=== PATIENT | female | born 1955 | race Hispanic/Latino ===

== ENCOUNTER 2020-11-03 12:02 | Inpatient (IN) | payer MEDICARE, OTHER ==
[~2020-11-03] VITALS: Ht 157.5 cm; Wt 79.4 kg
[2020-11-03 05:00] VITALS: BP 105/53
[2020-11-03 14:19] LABS: BASOPHILS % 0.2 % (0.0-1.0); EOSINOPHILS % 0.1 % (0.0-6.0); HEMATOCRIT 41.2 % (34.2-44.1); HEMOGLOBIN 13.2 g/dL (12.0-16.0); LYMPHOCYTES # (AUTO) 0.8 (1.0-3.2); LYMPHOCYTES % 7.3 % (18.0-39.1); MEAN CORPUSCULAR HEMOGLOBIN 29.3 pg (28-32); MEAN CORPUSCULAR VOLUME 91.4 fL (81-99); MONOCYTES # (AUTO) 0.4 (0.2-0.8); MONOCYTES % 3.3 % (4.4-11.3); NEUTROPHILS # (AUTO) 9.3 (2.1-6.9); NEUTROPHILS % 88.4 % (38.7-80.0); PLATELET COUNT 250 x10e3/uL (140-360); RED BLOOD COUNT 4.51 x10e6/uL (3.6-5.1); RED CELL DISTRIBUTION WIDTH 13.8 % (11.7-14.4)
[2020-11-03 14:23] LABS: INR 0.95; PROTHROMBIN TIME 13.2 seconds (11.9-14.5)
[2020-11-03] MEDS ORDERED: SODIUM CHLORIDE 0.9% 1000ML 1,000 ML IV STA (14:23)
[2020-11-03] MEDS ORDERED: ONDANSETRON HCL INJ 2MG/ML 2ML 2 MG/ML VIAL IV STA (14:23)
[2020-11-03 14:24] LABS: PARTIAL THROMBOPLASTIN TIME 29.7 seconds (23.8-35.5)
[2020-11-03] MEDS ORDERED: DEXAMETHASONE SOD PHOS INJ 4 MG/ML VIAL IV ONE (14:30)
[2020-11-03] MEDS ORDERED: CEFTRIAXONE SOD 1 GM/NS 50 ML 50 ML IV ONE (14:30)
[2020-11-03 14:33] LABS: ALBUMIN/GLOBULIN RATIO 0.6 (0.8-2.0); ANION GAP 15.5 mmol/L (8-16); CALCIUM 8.7 mg/dL (8.4-10.2); CREATININE, SERUM 1.21 mg/dL (0.57-1.11); MAGNESIUM 2.2 MG/DL (1.3-2.1); POTASSIUM 4.5 mmol/L (3.5-5.1)
[2020-11-03 14:40] LABS: CREATINE KINASE MB 0.6 ng/mL (0-5.0)
[2020-11-03] MEDS ORDERED: PANTOPRAZOLE 40 MG 10ML VIAL IV ONE (14:45)
[2020-11-03] MEDS ORDERED: AZITHROMYCIN 500MG/NS 250 ML 250 ML IV ONE (15:00)
[2020-11-03] MEDS ORDERED: ONDANSETRON HCL INJ 2MG/ML 2ML 2 MG/ML VIAL IV PRN (18:30)
[2020-11-03] MEDS: SODIUM CHLORIDE 0.9% 1000ML 1,000 ML IV SCH (19:14)
[2020-11-03] MEDS: ACETAMINOPHEN 325 MG TAB PO PRN ×2 (19:32→19:39)
[2020-11-03] MEDS ORDERED: ZOLPIDEM TARTRATE 5 MG TAB PO PRN (21:00)
[2020-11-03 23:15] VITALS: BP 105/53
[2020-11-04] VITALS (7 sets, daily range): BP systolic 105–135; BP diastolic 53–64
[2020-11-04] MEDS: ACETAMINOPHEN 325 MG TAB PO PRN (02:02)
[2020-11-04 02:08] LABS: CREATINE KINASE MB 0.8 ng/mL (0-5.0)
[2020-11-04] MEDS: SODIUM CHLORIDE 0.9% 1000ML 1,000 ML IV SCH (03:45)
[2020-11-04] MEDS ORDERED: LEVOTHYROXINE137 MC1 PO (04:29)
[2020-11-04] MEDS ORDERED: LEVOTHYROXINE112 MCG PO (04:31)
[2020-11-04 06:33] LABS: BASOPHILS % 0.2 % (0.0-1.0); HEMATOCRIT 37.7 % (34.2-44.1); LYMPHOCYTES % 12.4 % (18.0-39.1); MEAN CORPUSCULAR HEMOGLOBIN 29.7 pg (28-32); MEAN CORPUSCULAR HGB CONC 31.8 g/dL (31-35); MEAN CORPUSCULAR VOLUME 93.3 fL (81-99); MONOCYTES # (AUTO) 0.4 (0.2-0.8); MONOCYTES % 4.5 % (4.4-11.3); NEUTROPHILS # (AUTO) 6.9 (2.1-6.9); NEUTROPHILS % 81.6 % (38.7-80.0); PLATELET COUNT 219 x10e3/uL (140-360); RED BLOOD COUNT 4.04 x10e6/uL (3.6-5.1)
[2020-11-04 06:58] LABS: ALANINE AMINOTRANSFERASE 11 IU/L (0-55); ALBUMIN 2.3 g/dL (3.5-5.0); ALBUMIN/GLOBULIN RATIO 0.6 (0.8-2.0); ALKALINE PHOSPHATASE 52 IU/L (40-150); ANION GAP 13.7 mmol/L (8-16); BLOOD UREA NITROGEN 24 mg/dL (7-26); BUN/CREATININE RATIO 30 (6-25); CARBON DIOXIDE 16 mmol/L (22-29); CHLORIDE 111 mmol/L (98-107); CREATININE, SERUM 0.81 mg/dL (0.57-1.11); EST GLOMERULAR FILTRATION RATE > 60 ML/MIN (60-); GLUCOSE 86 mg/dL (74-118); POTASSIUM 4.7 mmol/L (3.5-5.1); SODIUM 136 mmol/L (136-145)
[2020-11-04] MEDS: ASCORBIC ACID 500 MG TAB PO SCH ×2 (07:32→16:54)
[2020-11-04] MEDS: ZINC SULFATE 220 MG CAP PO SCH (08:38)
[2020-11-04 10:18] LABS: CREATINE KINASE MB 0.9 ng/mL (0-5.0)
[2020-11-04] MEDS ORDERED: HYDRALAZINE HCL 20 MG/ML VIAL IV PRN (11:15)
[2020-11-04] MEDS: DEXAMETHASONE SOD PHOS INJ 4 MG/ML VIAL IV SCH (12:17)
[2020-11-04] MEDS ORDERED: DEXAMETHASONE SOD PHOS INJ 4 MG/ML VIAL IV SCH (14:00)
[2020-11-04] MEDS: CEFTRIAXONE SOD 1 GM/NS 50 ML 50 ML IV SCH (14:44)
[2020-11-04] MEDS ORDERED: REMDESIVIR 200MG/NS 100ML 200 MG IV ONE (15:00)
[2020-11-04] MEDS: FAMOTIDINE 20 MG TAB PO SCH (16:30)
[2020-11-04] MEDS: ENOXAPARIN SOD INJ 40 MG/0.4 ML SYR SC SCH (16:54)
[2020-11-04] MEDS: AZITHROMYCIN 500MG/NS 250 ML 250 ML IV SCH (16:54)
[2020-11-05] VITALS (7 sets, daily range): BP systolic 119–169; BP diastolic 62–79
[2020-11-05 05:34] LABS: BASOPHILS % 0.1 % (0.0-1.0); HEMATOCRIT 38.3 % (34.2-44.1); HEMOGLOBIN 12.2 g/dL (12.0-16.0); LYMPHOCYTES % 12.2 % (18.0-39.1); MEAN CORPUSCULAR HEMOGLOBIN 29.9 pg (28-32); MEAN CORPUSCULAR HGB CONC 31.9 g/dL (31-35); MEAN CORPUSCULAR VOLUME 93.9 fL (81-99); MONOCYTES # (AUTO) 0.5 (0.2-0.8); MONOCYTES % 6.9 % (4.4-11.3); NEUTROPHILS # (AUTO) 6.1 (2.1-6.9); NEUTROPHILS % 78.9 % (38.7-80.0); PLATELET COUNT 239 x10e3/uL (140-360); RED BLOOD COUNT 4.08 x10e6/uL (3.6-5.1); RED CELL DISTRIBUTION WIDTH 13.8 % (11.7-14.4)
[2020-11-05 05:52] LABS: ALANINE AMINOTRANSFERASE 8 IU/L (0-55); ALBUMIN 2.2 g/dL (3.5-5.0); ALBUMIN/GLOBULIN RATIO 0.5 (0.8-2.0); ALKALINE PHOSPHATASE 55 IU/L (40-150); ANION GAP 14.1 mmol/L (8-16); BLOOD UREA NITROGEN 25 mg/dL (7-26); BUN/CREATININE RATIO 33 (6-25); CALCIUM 7.7 mg/dL (8.4-10.2); CARBON DIOXIDE 17 mmol/L (22-29); CHLORIDE 111 mmol/L (98-107); CREATININE, SERUM 0.75 mg/dL (0.57-1.11); EST GLOMERULAR FILTRATION RATE > 60 ML/MIN (60-); GLUCOSE 97 mg/dL (74-118); POTASSIUM 4.1 mmol/L (3.5-5.1); SODIUM 138 mmol/L (136-145)
[2020-11-05] MEDS ORDERED: LEVOTHYROXINE SODIUM 112 MCG TAB PO SCH (07:00)
[2020-11-05] MEDS: LEVOTHYROXINE SODIUM 25 MCG TABLET PO SCH (09:01)
[2020-11-05] MEDS: ZINC SULFATE 220 MG CAP PO SCH (09:01)
[2020-11-05] MEDS: DEXAMETHASONE SOD PHOS INJ 4 MG/ML VIAL IV SCH (09:01)
[2020-11-05] MEDS: ASCORBIC ACID 500 MG TAB PO SCH ×2 (09:01→17:43)
[2020-11-05] MEDS: LEVOTHYROXINE SODIUM 112 MCG TAB PO SCH (09:01)
[2020-11-05] MEDS: FAMOTIDINE 20 MG TAB PO SCH ×2 (09:01→17:41)
[2020-11-05] MEDS: CHOLECALCIFEROL 400 UNIT TAB PO SCH (09:01)
[2020-11-05] MEDS: ONDANSETRON HCL INJ 2MG/ML 2ML 2 MG/ML VIAL IV PRN (10:58)
[2020-11-05] MEDS: CEFTRIAXONE SOD 1 GM/NS 50 ML 50 ML IV SCH (14:29)
[2020-11-05] MEDS: REMDESIVIR 100MG/NS 100ML 100 MG IV SCH (14:33)
[2020-11-05] MEDS: AZITHROMYCIN 500MG/NS 250 ML 250 ML IV SCH (17:41)
[2020-11-05] MEDS: ENOXAPARIN SOD INJ 40 MG/0.4 ML SYR SC SCH (17:43)
[2020-11-06] VITALS (9 sets, daily range): BP systolic 121–139; BP diastolic 64–76
[2020-11-06] MEDS: LEVOTHYROXINE SODIUM 25 MCG TABLET PO SCH (05:19)
[2020-11-06] MEDS: LEVOTHYROXINE SODIUM 112 MCG TAB PO SCH (05:19)
[2020-11-06 05:53] LABS: BASOPHILS % 0.3 % (0.0-1.0); HEMATOCRIT 39.5 % (34.2-44.1); HEMOGLOBIN 12.5 g/dL (12.0-16.0); LYMPHOCYTES # (AUTO) 1.3 (1.0-3.2); LYMPHOCYTES % 11.4 % (18.0-39.1); MEAN CORPUSCULAR HEMOGLOBIN 29.3 pg (28-32); MEAN CORPUSCULAR HGB CONC 31.6 g/dL (31-35); MEAN CORPUSCULAR VOLUME 92.7 fL (81-99); MONOCYTES % 8.6 % (4.4-11.3); NEUTROPHILS # (AUTO) 8.6 (2.1-6.9); NEUTROPHILS % 77.9 % (38.7-80.0); PLATELET COUNT 251 x10e3/uL (140-360); RED BLOOD COUNT 4.26 x10e6/uL (3.6-5.1); RED CELL DISTRIBUTION WIDTH 13.8 % (11.7-14.4)
[2020-11-06 06:15] LABS: ALANINE AMINOTRANSFERASE 10 IU/L (0-55); ALBUMIN 2.4 g/dL (3.5-5.0); ALBUMIN/GLOBULIN RATIO 0.6 (0.8-2.0); ALKALINE PHOSPHATASE 60 IU/L (40-150); ANION GAP 16.2 mmol/L (8-16); BLOOD UREA NITROGEN 23 mg/dL (7-26); BUN/CREATININE RATIO 32 (6-25); CALCIUM 8.4 mg/dL (8.4-10.2); CARBON DIOXIDE 19 mmol/L (22-29); CHLORIDE 108 mmol/L (98-107); CREATININE, SERUM 0.72 mg/dL (0.57-1.11); EST GLOMERULAR FILTRATION RATE > 60 ML/MIN (60-); GLUCOSE 89 mg/dL (74-118); POTASSIUM 4.2 mmol/L (3.5-5.1); SODIUM 139 mmol/L (136-145)
[2020-11-06] MEDS: ASCORBIC ACID 500 MG TAB PO SCH ×2 (07:18→17:41)
[2020-11-06] MEDS: ONDANSETRON HCL INJ 2MG/ML 2ML 2 MG/ML VIAL IV PRN (07:18)
[2020-11-06] MEDS: FAMOTIDINE 20 MG TAB PO SCH ×2 (07:18→17:41)
[2020-11-06] MEDS: DEXAMETHASONE SOD PHOS INJ 4 MG/ML VIAL IV SCH (07:18)
[2020-11-06] MEDS: ZINC SULFATE 220 MG CAP PO SCH (07:18)
[2020-11-06] MEDS: CHOLECALCIFEROL 400 UNIT TAB PO SCH (07:18)
[2020-11-06] MEDS: ACETAMINOPHEN 325 MG TAB PO PRN (13:01)
[2020-11-06] MEDS: REMDESIVIR 100MG/NS 100ML 100 MG IV SCH (15:15)
[2020-11-06] MEDS: CEFTRIAXONE SOD 1 GM/NS 50 ML 50 ML IV SCH (15:15)
[2020-11-06] MEDS: ENOXAPARIN SOD INJ 40 MG/0.4 ML SYR SC SCH (17:41)
[2020-11-06] MEDS: AZITHROMYCIN 500MG/NS 250 ML 250 ML IV SCH (17:41)
[2020-11-07] VITALS (11 sets, daily range): BP systolic 102–132; BP diastolic 66–81
[2020-11-07] MEDS: LEVOTHYROXINE SODIUM 112 MCG TAB PO SCH (05:30)
[2020-11-07] MEDS: LEVOTHYROXINE SODIUM 25 MCG TABLET PO SCH (05:30)
[2020-11-07 05:52] LABS: BASOPHILS % 0.2 % (0.0-1.0); HEMOGLOBIN 11.6 g/dL (12.0-16.0); LYMPHOCYTES % 8.6 % (18.0-39.1); MEAN CORPUSCULAR HEMOGLOBIN 29.4 pg (28-32); MEAN CORPUSCULAR HGB CONC 32.2 g/dL (31-35); MEAN CORPUSCULAR VOLUME 91.1 fL (81-99); MONOCYTES % 8.8 % (4.4-11.3); NEUTROPHILS # (AUTO) 8.9 (2.1-6.9); NEUTROPHILS % 80.8 % (38.7-80.0); PLATELET COUNT 180 x10e3/uL (140-360); RED BLOOD COUNT 3.95 x10e6/uL (3.6-5.1); RED CELL DISTRIBUTION WIDTH 13.5 % (11.7-14.4)
[2020-11-07 06:22] LABS: ALANINE AMINOTRANSFERASE 7 IU/L (0-55); ALBUMIN 2.2 g/dL (3.5-5.0); ALBUMIN/GLOBULIN RATIO 0.6 (0.8-2.0); ALKALINE PHOSPHATASE 60 IU/L (40-150); ANION GAP 14.9 mmol/L (8-16); BLOOD UREA NITROGEN 25 mg/dL (7-26); BUN/CREATININE RATIO 37 (6-25); CALCIUM 7.9 mg/dL (8.4-10.2); CARBON DIOXIDE 20 mmol/L (22-29); CHLORIDE 107 mmol/L (98-107); CREATININE, SERUM 0.68 mg/dL (0.57-1.11); EST GLOMERULAR FILTRATION RATE > 60 ML/MIN (60-); GLUCOSE 95 mg/dL (74-118); POTASSIUM 3.9 mmol/L (3.5-5.1); SODIUM 138 mmol/L (136-145)
[2020-11-07] MEDS: ASCORBIC ACID 500 MG TAB PO SCH ×2 (09:25→17:18)
[2020-11-07] MEDS: FAMOTIDINE 20 MG TAB PO SCH ×2 (09:25→17:18)
[2020-11-07] MEDS: DEXAMETHASONE SOD PHOS INJ 4 MG/ML VIAL IV SCH (09:25)
[2020-11-07] MEDS: CHOLECALCIFEROL 400 UNIT TAB PO SCH (09:25)
[2020-11-07] MEDS: ZINC SULFATE 220 MG CAP PO SCH (09:25)
[2020-11-07] MEDS: CEFTRIAXONE SOD 1 GM/NS 50 ML 50 ML IV SCH (14:32)
[2020-11-07] MEDS: REMDESIVIR 100MG/NS 100ML 100 MG IV SCH (16:07)
[2020-11-07] MEDS: AZITHROMYCIN 500MG/NS 250 ML 250 ML IV SCH (16:07)
[2020-11-07] MEDS: ENOXAPARIN SOD INJ 40 MG/0.4 ML SYR SC SCH (17:18)
[2020-11-08] VITALS (25 sets, daily range): BP systolic 94–139; BP diastolic 54–90
[2020-11-08] MEDS: LEVOTHYROXINE SODIUM 25 MCG TABLET PO SCH (05:10)
[2020-11-08] MEDS: LEVOTHYROXINE SODIUM 112 MCG TAB PO SCH (05:10)
[2020-11-08 06:14] LABS: BASOPHILS % 0.2 % (0.0-1.0); HEMOGLOBIN 11.2 g/dL (12.0-16.0); LYMPHOCYTES # (AUTO) 0.8 (1.0-3.2); LYMPHOCYTES % 6.2 % (18.0-39.1); MEAN CORPUSCULAR HEMOGLOBIN 29.2 pg (28-32); MEAN CORPUSCULAR VOLUME 91.4 fL (81-99); MONOCYTES % 8.2 % (4.4-11.3); NEUTROPHILS % 83.5 % (38.7-80.0); PLATELET COUNT 142 x10e3/uL (140-360); RED BLOOD COUNT 3.83 x10e6/uL (3.6-5.1); RED CELL DISTRIBUTION WIDTH 13.4 % (11.7-14.4)
[2020-11-08 06:44] LABS: ALANINE AMINOTRANSFERASE 8 IU/L (0-55); ALBUMIN/GLOBULIN RATIO 0.5 (0.8-2.0); ALKALINE PHOSPHATASE 56 IU/L (40-150); ANION GAP 13.1 mmol/L (8-16); BLOOD UREA NITROGEN 27 mg/dL (7-26); BUN/CREATININE RATIO 40 (6-25); CALCIUM 7.6 mg/dL (8.4-10.2); CARBON DIOXIDE 23 mmol/L (22-29); CHLORIDE 107 mmol/L (98-107); CREATININE, SERUM 0.68 mg/dL (0.57-1.11); EST GLOMERULAR FILTRATION RATE > 60 ML/MIN (60-); GLUCOSE 108 mg/dL (74-118); POTASSIUM 4.1 mmol/L (3.5-5.1); SODIUM 139 mmol/L (136-145)
[2020-11-08] MEDS: ZINC SULFATE 220 MG CAP PO SCH (08:18)
[2020-11-08] MEDS: ASCORBIC ACID 500 MG TAB PO SCH ×2 (08:18→16:38)
[2020-11-08] MEDS: CHOLECALCIFEROL 400 UNIT TAB PO SCH (08:18)
[2020-11-08] MEDS: FAMOTIDINE 20 MG TAB PO SCH ×2 (08:18→16:38)
[2020-11-08] MEDS: DEXAMETHASONE SOD PHOS INJ 4 MG/ML VIAL IV SCH (08:19)
[2020-11-08] MEDS ORDERED: DEXAMETHASONE SOD PHOS 10 MG/1 ML VIAL ONE (08:25)
[2020-11-08] MEDS ORDERED: LACTATED RINGER'S 500 ML INJ ONE (11:00)
[2020-11-08] MEDS: REMDESIVIR 100MG/NS 100ML 100 MG IV SCH (14:28)
[2020-11-08] MEDS: ENOXAPARIN SOD INJ 40 MG/0.4 ML SYR SC SCH (16:38)
[2020-11-08] MEDS: AZITHROMYCIN 500MG/NS 250 ML 250 ML IV SCH (16:38)
[2020-11-08] MEDS: CEFTRIAXONE SOD 1 GM/NS 50 ML 50 ML IV SCH (20:55)
[2020-11-09] VITALS (26 sets, daily range): BP systolic 108–134; BP diastolic 57–87
[2020-11-09 04:58] LABS: BASOPHILS % 0.2 % (0.0-1.0); EOSINOPHILS % 0.1 % (0.0-6.0); HEMATOCRIT 35.2 % (34.2-44.1); HEMOGLOBIN 11.6 g/dL (12.0-16.0); LYMPHOCYTES # (AUTO) 0.6 (1.0-3.2); LYMPHOCYTES % 4.7 % (18.0-39.1); MEAN CORPUSCULAR HEMOGLOBIN 30.1 pg (28-32); MEAN CORPUSCULAR VOLUME 91.4 fL (81-99); MONOCYTES # (AUTO) 0.9 (0.2-0.8); MONOCYTES % 6.7 % (4.4-11.3); NEUTROPHILS # (AUTO) 11.4 (2.1-6.9); NEUTROPHILS % 85.4 % (38.7-80.0); PLATELET COUNT 146 x10e3/uL (140-360); RED BLOOD COUNT 3.85 x10e6/uL (3.6-5.1); RED CELL DISTRIBUTION WIDTH 13.2 % (11.7-14.4)
[2020-11-09 05:25] LABS: ALANINE AMINOTRANSFERASE 7 IU/L (0-55); ALBUMIN/GLOBULIN RATIO 0.5 (0.8-2.0); ALKALINE PHOSPHATASE 61 IU/L (40-150); ANION GAP 12.2 mmol/L (8-16); BLOOD UREA NITROGEN 24 mg/dL (7-26); BUN/CREATININE RATIO 39 (6-25); CALCIUM 7.5 mg/dL (8.4-10.2); CARBON DIOXIDE 24 mmol/L (22-29); CHLORIDE 106 mmol/L (98-107); CREATININE, SERUM 0.61 mg/dL (0.57-1.11); EST GLOMERULAR FILTRATION RATE > 60 ML/MIN (60-); GLUCOSE 99 mg/dL (74-118); POTASSIUM 4.2 mmol/L (3.5-5.1); SODIUM 138 mmol/L (136-145)
[2020-11-09] MEDS: ACETAMINOPHEN 325 MG TAB PO PRN (06:20)
[2020-11-09] MEDS: LEVOTHYROXINE SODIUM 112 MCG TAB PO SCH (06:20)
[2020-11-09] MEDS: LEVOTHYROXINE SODIUM 25 MCG TABLET PO SCH (06:20)
[2020-11-09] MEDS: DEXAMETHASONE SOD PHOS INJ 4 MG/ML VIAL IV SCH (08:00)
[2020-11-09] MEDS: ZINC SULFATE 220 MG CAP PO SCH (08:00)
[2020-11-09] MEDS: ASCORBIC ACID 500 MG TAB PO SCH ×2 (08:00→17:02)
[2020-11-09] MEDS: FAMOTIDINE 20 MG TAB PO SCH ×2 (08:00→17:02)
[2020-11-09] MEDS: CHOLECALCIFEROL 400 UNIT TAB PO SCH (08:00)
[2020-11-09] MEDS: DEXMEDETOMIDINE 200MCG/NS 50ML 50 ML IV PRN ×2 (13:00→17:18)
[2020-11-09] MEDS ORDERED: ENOXAPARIN SOD INJ 40 MG/0.4 ML SYR SC SCH (17:00)
[2020-11-09] MEDS: ENOXAPARIN INJ 80 MG/0.8 ML SYR SC SCH (21:07)
[2020-11-09] MEDS: CEFTRIAXONE SOD 1 GM/NS 50 ML 50 ML IV SCH (21:07)
[2020-11-10] VITALS (24 sets, daily range): BP systolic 101–147; BP diastolic 53–78
[2020-11-10] MEDS: DEXMEDETOMIDINE 200MCG/NS 50ML 50 ML IV PRN ×4 (00:37→22:15)
[2020-11-10 05:34] LABS: BASOPHILS % 0.2 % (0.0-1.0); EOSINOPHILS # (AUTO) 0.1 (0.0-0.4); EOSINOPHILS % 0.8 % (0.0-6.0); HEMATOCRIT 36.1 % (34.2-44.1); HEMOGLOBIN 11.5 g/dL (12.0-16.0); LYMPHOCYTES # (AUTO) 0.6 (1.0-3.2); LYMPHOCYTES % 4.1 % (18.0-39.1); MEAN CORPUSCULAR HGB CONC 31.9 g/dL (31-35); MEAN CORPUSCULAR VOLUME 90.9 fL (81-99); MONOCYTES # (AUTO) 0.7 (0.2-0.8); MONOCYTES % 4.9 % (4.4-11.3); NEUTROPHILS # (AUTO) 12.3 (2.1-6.9); NEUTROPHILS % 88.4 % (38.7-80.0); PLATELET COUNT 132 x10e3/uL (140-360); RED BLOOD COUNT 3.97 x10e6/uL (3.6-5.1); RED CELL DISTRIBUTION WIDTH 13.1 % (11.7-14.4)
[2020-11-10] MEDS: LEVOTHYROXINE SODIUM 112 MCG TAB PO SCH (05:40)
[2020-11-10] MEDS: LEVOTHYROXINE SODIUM 25 MCG TABLET PO SCH (05:40)
[2020-11-10 05:59] LABS: ALANINE AMINOTRANSFERASE 7 IU/L (0-55); ALBUMIN 1.9 g/dL (3.5-5.0); ALBUMIN/GLOBULIN RATIO 0.5 (0.8-2.0); ALKALINE PHOSPHATASE 69 IU/L (40-150); ANION GAP 13.5 mmol/L (8-16); BLOOD UREA NITROGEN 28 mg/dL (7-26); BUN/CREATININE RATIO 41 (6-25); CALCIUM 7.5 mg/dL (8.4-10.2); CARBON DIOXIDE 25 mmol/L (22-29); CHLORIDE 104 mmol/L (98-107); CREATININE, SERUM 0.69 mg/dL (0.57-1.11); EST GLOMERULAR FILTRATION RATE > 60 ML/MIN (60-); GLUCOSE 92 mg/dL (74-118); POTASSIUM 4.5 mmol/L (3.5-5.1); SODIUM 138 mmol/L (136-145)
[2020-11-10] MEDS: ZINC SULFATE 220 MG CAP PO SCH (08:37)
[2020-11-10] MEDS: CHOLECALCIFEROL 400 UNIT TAB PO SCH (08:37)
[2020-11-10] MEDS: ENOXAPARIN INJ 80 MG/0.8 ML SYR SC SCH ×2 (08:37→20:06)
[2020-11-10] MEDS: ASCORBIC ACID 500 MG TAB PO SCH ×2 (08:37→17:03)
[2020-11-10] MEDS: DEXAMETHASONE SOD PHOS INJ 4 MG/ML VIAL IV SCH (08:37)
[2020-11-10] MEDS: FAMOTIDINE 20 MG TAB PO SCH ×2 (08:37→17:03)
[2020-11-10] MEDS: CEFTRIAXONE SOD 1 GM/NS 50 ML 50 ML IV SCH (20:06)
[2020-11-11] VITALS (25 sets, daily range): BP systolic 118–154; BP diastolic 59–82
[2020-11-11] MEDS: DEXMEDETOMIDINE 200MCG/NS 50ML 50 ML IV PRN ×2 (02:21→05:45)
[2020-11-11 05:29] LABS: BASOPHILS % 0.2 % (0.0-1.0); EOSINOPHILS % 0.2 % (0.0-6.0); HEMATOCRIT 37.6 % (34.2-44.1); HEMOGLOBIN 12.1 g/dL (12.0-16.0); LYMPHOCYTES # (AUTO) 0.6 (1.0-3.2); LYMPHOCYTES % 4.8 % (18.0-39.1); MEAN CORPUSCULAR HEMOGLOBIN 29.5 pg (28-32); MEAN CORPUSCULAR HGB CONC 32.2 g/dL (31-35); MEAN CORPUSCULAR VOLUME 91.7 fL (81-99); MONOCYTES # (AUTO) 0.6 (0.2-0.8); MONOCYTES % 5.3 % (4.4-11.3); NEUTROPHILS # (AUTO) 10.2 (2.1-6.9); NEUTROPHILS % 87.8 % (38.7-80.0); PLATELET COUNT 169 x10e3/uL (140-360)
[2020-11-11] MEDS: LEVOTHYROXINE SODIUM 112 MCG TAB PO SCH (06:00)
[2020-11-11] MEDS: LEVOTHYROXINE SODIUM 25 MCG TABLET PO SCH (06:00)
[2020-11-11 06:04] LABS: ALANINE AMINOTRANSFERASE 8 IU/L (0-55); ALBUMIN 1.9 g/dL (3.5-5.0); ALBUMIN/GLOBULIN RATIO 0.5 (0.8-2.0); ALKALINE PHOSPHATASE 75 IU/L (40-150); ANION GAP 13.7 mmol/L (8-16); BLOOD UREA NITROGEN 31 mg/dL (7-26); BUN/CREATININE RATIO 44 (6-25); CALCIUM 7.8 mg/dL (8.4-10.2); CARBON DIOXIDE 25 mmol/L (22-29); CHLORIDE 104 mmol/L (98-107); EST GLOMERULAR FILTRATION RATE > 60 ML/MIN (60-); GLUCOSE 129 mg/dL (74-118); POTASSIUM 4.7 mmol/L (3.5-5.1); SODIUM 138 mmol/L (136-145)
[2020-11-11] MEDS: ENOXAPARIN INJ 80 MG/0.8 ML SYR SC SCH ×2 (08:47→21:36)
[2020-11-11] MEDS: ZINC SULFATE 220 MG CAP PO SCH (08:47)
[2020-11-11] MEDS: CHOLECALCIFEROL 400 UNIT TAB PO SCH (08:47)
[2020-11-11] MEDS: DEXAMETHASONE SOD PHOS INJ 4 MG/ML VIAL IV SCH (08:47)
[2020-11-11] MEDS: ASCORBIC ACID 500 MG TAB PO SCH ×2 (08:47→17:00)
[2020-11-11] MEDS: FAMOTIDINE 20 MG TAB PO SCH ×2 (08:47→16:30)
[2020-11-11] MEDS: GUAIFENESIN/CODEINE 10 ML CUP PO PRN ×2 (11:00→20:20)
[2020-11-11] MEDS: CEFTRIAXONE SOD 1 GM/NS 50 ML 50 ML IV SCH (20:00)
[2020-11-12] VITALS (24 sets, daily range): BP systolic 138–162; BP diastolic 54–87
[2020-11-12 04:54] LABS: BASOPHILS % 0.1 % (0.0-1.0); EOSINOPHILS % 0.2 % (0.0-6.0); HEMATOCRIT 36.3 % (34.2-44.1); HEMOGLOBIN 11.6 g/dL (12.0-16.0); LYMPHOCYTES # (AUTO) 0.6 (1.0-3.2); LYMPHOCYTES % 5.1 % (18.0-39.1); MEAN CORPUSCULAR HEMOGLOBIN 29.1 pg (28-32); MEAN CORPUSCULAR VOLUME 91.2 fL (81-99); MONOCYTES # (AUTO) 0.8 (0.2-0.8); MONOCYTES % 6.5 % (4.4-11.3); NEUTROPHILS % 86.8 % (38.7-80.0); PLATELET COUNT 201 x10e3/uL (140-360); RED BLOOD COUNT 3.98 x10e6/uL (3.6-5.1)
[2020-11-12 05:17] LABS: ALANINE AMINOTRANSFERASE 8 IU/L (0-55); ALBUMIN 1.9 g/dL (3.5-5.0); ALBUMIN/GLOBULIN RATIO 0.5 (0.8-2.0); ALKALINE PHOSPHATASE 72 IU/L (40-150); ANION GAP 14.4 mmol/L (8-16); BLOOD UREA NITROGEN 26 mg/dL (7-26); BUN/CREATININE RATIO 41 (6-25); CALCIUM 7.7 mg/dL (8.4-10.2); CARBON DIOXIDE 26 mmol/L (22-29); CHLORIDE 103 mmol/L (98-107); CREATININE, SERUM 0.63 mg/dL (0.57-1.11); EST GLOMERULAR FILTRATION RATE > 60 ML/MIN (60-); GLUCOSE 101 mg/dL (74-118); POTASSIUM 4.4 mmol/L (3.5-5.1); SODIUM 139 mmol/L (136-145)
[2020-11-12] MEDS: LEVOTHYROXINE SODIUM 25 MCG TABLET PO SCH (05:22)
[2020-11-12] MEDS: LEVOTHYROXINE SODIUM 112 MCG TAB PO SCH ×2 (05:22→20:35)
[2020-11-12] MEDS: FAMOTIDINE 20 MG TAB PO SCH ×2 (07:30→16:13)
[2020-11-12] MEDS: ASCORBIC ACID 500 MG TAB PO SCH ×2 (07:46→16:14)
[2020-11-12] MEDS: CHOLECALCIFEROL 400 UNIT TAB PO SCH (07:46)
[2020-11-12] MEDS: ZINC SULFATE 220 MG CAP PO SCH (07:46)
[2020-11-12] MEDS: DEXAMETHASONE SOD PHOS INJ 4 MG/ML VIAL IV SCH (08:08)
[2020-11-12] MEDS: ENOXAPARIN INJ 80 MG/0.8 ML SYR SC SCH ×2 (08:08→20:19)
[2020-11-12] MEDS: DEXMEDETOMIDINE 200MCG/NS 50ML 50 ML IV PRN (20:19)
[2020-11-12] MEDS: CEFTRIAXONE SOD 1 GM/NS 50 ML 50 ML IV SCH (20:19)
[2020-11-13] VITALS (24 sets, daily range): BP systolic 125–161; BP diastolic 63–91
[2020-11-13] MEDS: DEXMEDETOMIDINE 200MCG/NS 50ML 50 ML IV PRN ×2 (01:15→20:50)
[2020-11-13 04:55] LABS: BASOPHILS % 0.1 % (0.0-1.0); EOSINOPHILS % 0.3 % (0.0-6.0); HEMATOCRIT 38.3 % (34.2-44.1); HEMOGLOBIN 12.3 g/dL (12.0-16.0); LYMPHOCYTES # (AUTO) 0.7 (1.0-3.2); LYMPHOCYTES % 7.3 % (18.0-39.1); MEAN CORPUSCULAR HEMOGLOBIN 29.3 pg (28-32); MEAN CORPUSCULAR HGB CONC 32.1 g/dL (31-35); MEAN CORPUSCULAR VOLUME 91.2 fL (81-99); MONOCYTES # (AUTO) 0.6 (0.2-0.8); MONOCYTES % 6.8 % (4.4-11.3); NEUTROPHILS % 84.1 % (38.7-80.0); PLATELET COUNT 225 x10e3/uL (140-360); RED CELL DISTRIBUTION WIDTH 12.7 % (11.7-14.4)
[2020-11-13 05:21] LABS: ALANINE AMINOTRANSFERASE 10 IU/L (0-55); ALBUMIN 1.9 g/dL (3.5-5.0); ALBUMIN/GLOBULIN RATIO 0.5 (0.8-2.0); ALKALINE PHOSPHATASE 80 IU/L (40-150); ANION GAP 14.8 mmol/L (8-16); BLOOD UREA NITROGEN 26 mg/dL (7-26); BUN/CREATININE RATIO 42 (6-25); CALCIUM 7.7 mg/dL (8.4-10.2); CARBON DIOXIDE 28 mmol/L (22-29); CHLORIDE 100 mmol/L (98-107); CREATININE, SERUM 0.62 mg/dL (0.57-1.11); EST GLOMERULAR FILTRATION RATE > 60 ML/MIN (60-); GLUCOSE 93 mg/dL (74-118); POTASSIUM 4.8 mmol/L (3.5-5.1); SODIUM 138 mmol/L (136-145)
[2020-11-13] MEDS ORDERED: LEVOTHYROXINE SODIUM 112 MCG TAB PO SCH (06:00)
[2020-11-13] MEDS: FAMOTIDINE 20 MG TAB PO SCH ×2 (07:30→16:41)
[2020-11-13] MEDS: ZINC SULFATE 220 MG CAP PO SCH (08:55)
[2020-11-13] MEDS: ENOXAPARIN INJ 80 MG/0.8 ML SYR SC SCH ×2 (08:55→20:03)
[2020-11-13] MEDS: CHOLECALCIFEROL 400 UNIT TAB PO SCH (08:55)
[2020-11-13] MEDS: ASCORBIC ACID 500 MG TAB PO SCH ×2 (08:55→16:41)
[2020-11-13] MEDS: DEXAMETHASONE SOD PHOS INJ 4 MG/ML VIAL IV SCH (08:55)
[2020-11-14] VITALS (9 sets, daily range): BP systolic 111–152; BP diastolic 64–73
[2020-11-14] MEDS: DEXMEDETOMIDINE 200MCG/NS 50ML 50 ML IV PRN (01:00)
[2020-11-14 04:26] LABS: ALANINE AMINOTRANSFERASE 11 IU/L (0-55); ALBUMIN 1.9 g/dL (3.5-5.0); ALBUMIN/GLOBULIN RATIO 0.4 (0.8-2.0); ALKALINE PHOSPHATASE 72 IU/L (40-150); ANION GAP 12.6 mmol/L (8-16); BLOOD UREA NITROGEN 32 mg/dL (7-26); BUN/CREATININE RATIO 48 (6-25); CALCIUM 7.8 mg/dL (8.4-10.2); CARBON DIOXIDE 27 mmol/L (22-29); CHLORIDE 100 mmol/L (98-107); CREATININE, SERUM 0.66 mg/dL (0.57-1.11); EST GLOMERULAR FILTRATION RATE > 60 ML/MIN (60-); GLUCOSE 103 mg/dL (74-118); POTASSIUM 4.6 mmol/L (3.5-5.1); SODIUM 135 mmol/L (136-145)
[2020-11-14 04:28] LABS: MAGNESIUM 2.5 MG/DL (1.3-2.1); PHOSPHORUS 4.6 MG/DL (2.3-4.7)
[2020-11-14] MEDS: LEVOTHYROXINE SODIUM 112 MCG TAB PO SCH (05:13)
[2020-11-14] MEDS ORDERED: MINERAL OIL 132 ML BTL PR ONE (06:00)
[2020-11-14 07:53] LABS: HEMATOCRIT 44.2 % (34.2-44.1); HEMOGLOBIN 14.5 g/dL (12.0-16.0); MEAN CORPUSCULAR VOLUME 89.7 fL (81-99); RED BLOOD COUNT 4.93 x10e6/uL (3.6-5.1)
[2020-11-14 07:54] LABS: BASOPHILS # (AUTO) 0.1 (0.0-0.1); BASOPHILS % 0.3 % (0.0-1.0); EOSINOPHILS % 0.2 % (0.0-6.0); LYMPHOCYTES # (AUTO) 0.7 (1.0-3.2); LYMPHOCYTES % 3.1 % (18.0-39.1); MEAN CORPUSCULAR HEMOGLOBIN 29.4 pg (28-32); MEAN CORPUSCULAR HGB CONC 32.8 g/dL (31-35); MONOCYTES # (AUTO) 0.3 (0.2-0.8); MONOCYTES % 1.2 % (4.4-11.3); NEUTROPHILS # (AUTO) 20.6 (2.1-6.9); NEUTROPHILS % 93.4 % (38.7-80.0); PLATELET COUNT 375 x10e3/uL (140-360); RED CELL DISTRIBUTION WIDTH 12.9 % (11.7-14.4)
[2020-11-14] MEDS ORDERED: FENTANYL 2000MCG/NS 250 250 ML IV PRN (09:00)
[2020-11-14] MEDS ORDERED: DOCUSATE SODIUM LIQD 100 MG/10 ML UDC NG SCH (09:00)
[2020-11-14] MEDS ORDERED: MIDAZOLAM HCL 5MG/ML 10ML VIAL 100 ML IV PRN (09:00)
[2020-11-14] MEDS ORDERED: FENTANYL 2000MCG/NS 250 250 ML ONE (09:02)
[2020-11-14] MEDS ORDERED: MIDAZOLAM HCL 5MG/ML 10ML VIAL 100 ML IV ONE (09:16)
[2020-11-14] MEDS ORDERED: SODIUM BICARBONATE 8.4% SYRING 100 ML ONE (09:39)
[2020-11-14] MEDS ORDERED: MIDAZOLAM HCL 2 MG/2 ML VIAL ONE (12:21)
[2020-11-14] MEDS ORDERED: ETOMIDATE 2 MG/ML 10 ML INJ IV ONE (12:21)
[2020-11-14] MEDS ORDERED: SUCCINYLCHOLINE CHLORIDE 20 MG/ML 10ML VIAL ONE (12:21)
[2020-11-14] MEDS ORDERED: SODIUM BICARBONATE 8.4% INJ 50 ML SYR ONE (17:40)
[2020-11-14] MEDS ORDERED: EPINEPHRINE HCL SYRINGE ONE (17:40)
[2020-11-15] MEDS ORDERED: LEVOTHYROXINE SODIUM 25 MCG TABLET PO SCH (06:00)
== END 2020-11-14 15:32 | disposition expired | DRG 177 ==
LOC: ER 12:30 → ERHOLD 17:50 → MED/SURG2 23:10 → IMCU 11-06 21:34 → ICU 11-07 17:39
PROVIDERS: ADMIT Internal Medicine; ATTEND Internal Medicine
PROC: XW033E5 Introduction of Remdesivir Anti-infective into Peripheral Vein, Percutaneous Approach, New Technology Group 5 (ICD-10-PCS; 2020-11-04)
PROC: 3E0333Z Introduction of Anti-inflammatory into Peripheral Vein, Percutaneous Approach (ICD-10-PCS; 2020-11-04)
PROC: 02HV33Z Insertion of Infusion Device into Superior Vena Cava, Percutaneous Approach (ICD-10-PCS; 2020-11-05)
PROC: B548ZZA Ultrasonography of Superior Vena Cava, Guidance (ICD-10-PCS; 2020-11-05)
PROC: 02HV33Z Insertion of Infusion Device into Superior Vena Cava, Percutaneous Approach (ICD-10-PCS; principal; 2020-11-09)
PROC: B548ZZA Ultrasonography of Superior Vena Cava, Guidance (ICD-10-PCS; 2020-11-09)
PROC: 5A12012 Performance of Cardiac Output, Single, Manual (ICD-10-PCS; 2020-11-14)
PROC: 0BH17EZ Insertion of Endotracheal Airway into Trachea, Via Natural or Artificial Opening (ICD-10-PCS; 2020-11-14)
PROC: 5A19054 Respiratory Ventilation, Single, Nonmechanical (ICD-10-PCS; 2020-11-14)
DX: U07.1 COVID-19 (principal); J12.82 Pneumonia due to coronavirus disease 2019; J96.01 Acute respiratory failure with hypoxia; E87.1 Hypo-osmolality and hyponatremia; N17.9 Acute kidney failure, unspecified; E87.2 Acidosis; I82.A11 Acute embolism and thrombosis of right axillary vein; I82.621 Acute embolism and thrombosis of deep veins of right upper extremity; E03.9 Hypothyroidism, unspecified; E66.9 Obesity, unspecified; Z68.32 Body mass index [BMI] 32.0-32.9, adult; D64.9 Anemia, unspecified; R13.10 Dysphagia, unspecified
CPT/HCPCS: 36415; 36569; 71045; 80053; 82550; 82553; 82948; 83735; 83880; 84100; 84484; 85025; 85610; 85730; 87040; 92950; 93005; 93306; 93970; 94660; 96361; 99251; 99285; J0171; J0330; J0456; J0696; J1100; J1650; J2250; J2405; J7030; J7121; U0002